=== PATIENT | male | born 1990 | race Caucasian/White ===

== ENCOUNTER → 2016-07-16 | Outpatient (CLI) | payer BC, MEDICARE | LOC: MW.CHFP 08:00 | CPT/HCPCS: G0463 ==

== ENCOUNTER 2017-12-01 18:48 | Observation (INO) | payer BC, MEDICARE ==
[2017-12-01] MEDS ORDERED: Sodium Chloride 0.9% 1,000 ML IV ONE (19:33)
[2017-12-01] MEDS ORDERED: Sodium Chloride 0.9% 10 ML Syringe FLUSH PRN ×2 (19:33)
[2017-12-01] MEDS ORDERED: Sodium Chloride 0.9% 2.5 ML Syringe FLUSH PRN (19:33)
[2017-12-01] MEDS ORDERED: Ondansetron 4 MG/2 ML SDV IVPUSH ONE (19:33)
[2017-12-01] MEDS ORDERED: HYDROmorphone 2 MG/ML SDV IVPUSH ONE (19:33)
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
[2017-12-01] MEDS ORDERED: HYDROmorphone 1 MG/ML Syringe IVPUSH ONE (19:45)
[2017-12-01 20:24] LABS: CHLORIDE,CL 102 mmol/L (98-107); SODIUM,NA 137 mmol/L (136-148)
[2017-12-01] MEDS ORDERED: HYDROmorphone 2 MG/ML SDV IV ONE (22:07)
[2017-12-01] MEDS ORDERED: cefTRIAXone 1 GM in Premix Bag 1 BAG IV ONE (22:14)
[2017-12-01] MEDS ORDERED: Iopamidol 755 MG/ML 500 ML Multipack Bottle IVPUSH STA (22:43)
[2017-12-01] MEDS ORDERED: Lactated Ringers 1,000 ML IV SCH ×2 (22:45→23:15)
[2017-12-01] MEDS ORDERED: Bupivacaine 25%/EPINEPHrine/PF 30 ML ONE (22:51)
--- NOTE | 2017-12-01 23:06 | PCM.SN ---
- Free Text/Narrative Note: pt seen, chart reviewed; acute appendicitis; to OR; rb dw pt re bleeding/ infection/damage to nearby organs; pt concurs and proceed; [id number]
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
[2017-12-01] MEDS ORDERED: EPINEPHrine 1 MG/ML 30 ML MDV IVPUSH ONE (23:16)
[2017-12-01] MEDS ORDERED: diphenhydrAMINE 50 MG/ML SDV IVPUSH ONE (23:16)
[2017-12-01] MEDS ORDERED: EPINEPHrine 1 MG/ML SDV ONE (23:19)
[2017-12-01] MEDS ORDERED: Propofol 200 MG/20 ML SDV ONE (23:20)
[2017-12-01] MEDS ORDERED: fentaNYL 250 MCG/5 ML SDV ONE (23:20)
[2017-12-01] MEDS ORDERED: Midazolam 1 MG/ML 2 ML SDV ONE (23:20)
[2017-12-01] MEDS ORDERED: Succinylcholine 200 MG/10 ML MDV ONE (23:22)
[2017-12-01] MEDS ORDERED: Rocuronium 10 MG/ML 10 ML Syringe ONE (23:22)
[2017-12-01] MEDS ORDERED: Dexamethasone 4 MG/ML 5 ML MDV ONE (23:24)
[2017-12-01] MEDS ORDERED: Ondansetron 4 MG/2 ML SDV ONE (23:24)
[2017-12-02] MEDS ORDERED: Hydrocortisone Sodium Succinate 100 MG/2 ML SDV ONE (00:02)
[2017-12-02] MEDS ORDERED: Phenylephrine/Normal Saline 100 MCG/ML 10 ML Syringe ONE (00:04)
[2017-12-02] MEDS ORDERED: Vasopressin 20 Units/1 ML MDV ONE (00:20)
[2017-12-02] MEDS ORDERED: Neostigmine Methylsulfate 1 MG/ML 5 ML Syringe ONE (00:29)
[2017-12-02] MEDS ORDERED: Glycopyrrolate 0.2 MG/ML SDV ONE ×2 (00:29→00:45)
--- NOTE | 2017-12-02 01:11 | CONS ---
DATE OF CONSULTATION: DATE OF : 1990 PRIMARY CARE PHYSICIAN: None PCP Consult was called, and the patient was seen shortly after. CONCERNING QUESTION: Acute appendicitis. HISTORY OF PRESENT ILLNESS: The patient is a 27-year-old gentleman, had traumatic brain injury and seizure disorder in 2009, complained of abdominal pain for about 12 hours. In the emergency room, workup included CAT scan that shows acute appendicitis, Surgery was consulted. The patient denied prior episode. Denied nausea or vomiting. Last meal was 24 hours ago. ALLERGIES: Please refer to nursing for details. MEDICATION: Please refer to nursing for details. FAMILY HISTORY: Noncontributory. REVIEW OF SYSTEMS: Same as history of present illness. PHYSICAL EXAMINATION: GENERAL: A very pleasant, nice gentleman, in no acute distress. ENT: Normocephalic, atraumatic. Sclerae anicteric. HEAD AND NECK: The patient has a well-healed tracheostomy site. LUNGS: Clear to auscultation. HEART: Regular rate and rhythm. ABDOMEN: Soft, nondistended. No pulsating tenderness in the midline abdominal structure. Exquisite tenderness on the right lower quadrant. No Rovsing sign. No rebound tenderness. No surgical scar in the abdomen. DIAGNOSTIC DATA: CAT scan is alluded to. IMPRESSION: Acute appendicitis. Would benefit from appendectomy, laparoscopic versus open. Risks and benefits discussed with the patient including bleeding, infection, and damage to nearby organs. The patient agreed to proceed with surgery. The patient has some hardware in the brain and already gave 1 g of Rocephin and proceed as laparoscopic appendectomy. JENNA / ZOFIA /[id number]
--- NOTE | 2017-12-02 01:26 | PCM.OPNOTE ---
- General Post-Op/Procedure Note Date of Surgery/Procedure: 12/02/17 Operative Procedure(s): lap appendectomy Findings: appendix is dusky, edema, and with exudate, cw appendicitis suppurativa; peritoneal fluid was cloudy; gross perf was not observed; [id number] Pre Op Diagnosis: acute appendicitis Post-Op Diagnosis: Same Anesthesia Technique: General ET Tube Primary Surgeon: Haile Martino Pathology: sent Condition: Fair Free Text/Narrative:: Intake & Output 12/01/17 12/01/17 12/02/17 14:59 22:59 06:59 Output Total 400 Balance -400
[2017-12-02] MEDS ORDERED: Acetaminophen/oxyCODONE 325-5 MG Tab PO PRN (01:29)
[2017-12-02] MEDS ORDERED: Ondansetron 4 MG/2 ML SDV IVPUSH PRN (01:29)
[2017-12-02] MEDS ORDERED: Lactated Ringers 1,000 ML IV SCH (01:30)
--- NOTE | 2017-12-02 01:49 | OR ---
SURGEON: Haile Martino MD DATE OF PROCEDURE: 12/02/2017 PREOPERATIVE DIAGNOSIS: Acute appendicitis. POSTOPERATIVE DIAGNOSIS: Acute appendicitis. PROCEDURE PERFORMED: Laparoscopic appendectomy. COMPLICATIONS: None. FINDINGS: Appendix is dusky and edematous and suppurative, but there is no gross perforation observed. Peritoneal fluid is kind of yellow though and cloudy. PROCEDURE IN DETAIL: The patient was taken to the operating room and placed in the supine position. Following induction of general endotracheal anesthesia, the patient's abdomen was prepped and draped in the sterile fashion. A time-out has been called. The patient was identified. The procedure was identified. The antibiotics were identified. The procedure then proceeded. The abdomen was prepped and draped in a standard fashion. After assessment of appropriate landmarks, a 12 millimeter trocar was inserted supraumbilically using Optiview and pneumoperitoneum was then achieved. This was followed with placement of 5 millimeter port in the right upper quadrant and another 5 millimeter port infraumbilically. The camera was inserted supraumbilical site and two laparoscopic Cobb retractors were then inserted through the other two sites. Following the cecum, the appendix was located. The appendix was then lifted up, and using a GI stapler the appendix was amputated at the base. And using the GI stapler, the mesoappendix was then amputated. The appendix was retrieved by an endoscopic bag and sent for pathologist. This was then followed by re-insertion of the camera to examine the staple line, and hemostasis. The trocars were then removed. The umbilical site was closed with 2-0 Vicryl deep stitch and 4 -0 Vicryl and dermabond; the other 2 5 mm port sites were closed with 4-0 Vicryl and dermabond. The patient was then awakened, extubated, and transferred to the recovery room in hemodynamically stable condition. Prior to closing, sponge count and instrument count was correct. Dr. Martino was present throughout the whole procedure. As always, thank you for the kind referral. INTRAOPERATIVE FINDINGS: As dictated above. JENNA / ZOFIA /[id number]
--- NOTE | 2017-12-02 01:54 | PCM.POSTAN ---
POST ANESTHESIA ASSESSMENT - MENTAL STATUS Mental Status: Alert, Oriented - RESPIRATORY Respiratory Status: Supplemental Oxygen - CARDIOVASCULAR CV Status: Pulse Rate WNL - GASTROINTESTINAL GI Status: No Symptoms - POST OP HYDRATION Hydration Status: Adequate & Stable (To ICU for observation due to O2 sats decreasing to 88%. Dr. Diaz here and talked to meter supervisor.)
--- NOTE | 2017-12-02 01:58 | PCM.SN ---
- Free Text/Narrative Note: Patient now states that he has been diagnosed with sleep apnea but does not wear CPAP. Explained that his oxygen saturations drop to 88% on 3L per [place] when asleep so he will have a mask on and be observed overnight in ICU so he can be watched more closely. Prior to surgery, when patient asked if he had any breathing issues he denied them.
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
[2017-12-02] MEDS ORDERED: Albuterol/Ipratropium 3.0-0.5 MG/3 ML Neb Soln NEB ONE (02:29)
--- NOTE | 2017-12-02 07:42 | PCM48HPAN ---
Post Anesthesia Note - EVALUATION WITHIN 48HRS OF ANESTHETIC Vital Signs in Normal Range: Yes Patient Participated in Evaluation: No (Patient and Dad asleep in room so not disturbed) Respiratory Function Stable: Yes (O2 at .5L/NC per RN) Airway Patent: Yes Cardiovascular Function Stable: Yes Hydration Status Stable: Yes Pain Control Satisfactory: Yes Nausea and Vomiting Control Satisfactory: Yes Mental Status Recovered: Yes Resp Rate: 20
[2017-12-02] MEDS ORDERED: levETIRAcetam 500 MG Tab PO SCH (09:00)
[2017-12-02] MEDS ORDERED: Amoxicillin/Clavulanate K 875-125 MG Tab PO SCH (09:00)
[2017-12-02] MEDS ORDERED: Escitalopram 10 MG Tab PO SCH (09:00)
--- NOTE | 2017-12-02 09:43 | PCM.SURGPN ---
- General Info Date of Service: 12/02/17 Functional Status: Reports: Pain Controlled (overnight uneventful, no desat or co) - Review of Systems General: Reports: No Symptoms Gastrointestinal: Reports: No Symptoms - Patient Data Vitals - Most Recent: Last Vital Signs Temp 98.7 F 12/02/17 08:00 Pulse 104 H 12/02/17 02:00 Resp 17 12/02/17 08:00 BP 92/55 L 12/02/17 08:00 Pulse Ox 94 L 12/02/17 08:00 Weight - Most Recent: 263 lb 10.766 oz I&O - Last 24 Hours: Intake & Output 12/01/17 12/02/17 12/02/17 22:59 06:59 14:59 Intake Total 2161 Output Total 400 Balance 1761 Lab Results Last 24 Hrs: Laboratory Results - last 24 hr 12/01/17 12/01/17 12/01/17 Range/Units 19:45 19:58 19:58 WBC 16.04 H (4.0-11.0) K/uL RBC 5.23 (4.50-5.90) M/uL Hgb 16.6 (13.0-17.0) g/dL Hct 46.0 (38.0-50.0) % MCV 88.0 (80.0-98.0) fL MCH 31.7 (27.0-32.0) pg MCHC 36.1 (31.0-37.0) g/dL RDW Std Deviation 41.3 (28.0-62.0) fl RDW Coeff of Dar 13 (11.0-15.0) % Plt Count 228 (150-400) K/uL MPV 9.30 (7.40-12.00) fL Neut % (Auto) 93.7 H (48.0-80.0) % Lymph % (Auto) 3.6 L (16.0-40.0) % [place] % (Auto) 2.6 (0.0-15.0) % Eos % (Auto) 0.0 (0.0-7.0) % Baso % (Auto) 0.1 (0.0-1.5) % Neut # (Auto) 15.0 H (1.4-5.7) K/uL Lymph # (Auto) 0.6 (0.6-2.4) K/uL [place] # (Auto) 0.4 (0.0-0.8) K/uL Eos # (Auto) 0.0 (0.0-0.7) K/uL Baso # (Auto) 0.0 (0.0-0.1) K/uL Nucleated RBC % 0.0 /100WBC Nucleated RBCs # 0 K/uL Sodium 137 (136-148) mmol/L Potassium 3.5 (3.5-5.1) mmol/L Chloride 102 (98-107) mmol/L Carbon Dioxide 24.1 (21.0-32.0) mmol/L BUN 17 (7.0-18.0) mg/dL Creatinine 1.2 (0.8-1.3) mg/dL Est Cr Clr Drug Dosing 119.54 mL/min Estimated GFR (MDRD) > 60.0 ml/min Glucose 129 H (74-106) mg/dL Calcium 9.2 (8.5-10.1) mg/dL Total Bilirubin 1.7 H (0.2-1.0) mg/dL AST 19 (15-37) IU/L ALT 31 (14-63) IU/L Alkaline Phosphatase 93 (46-116) U/L Total Protein 7.8 (6.4-8.2) g/dL Albumin 4.5 (3.4-5.0) g/dL Globulin 3.3 (2.0-3.5) g/dL Albumin/Globulin Ratio 1.4 (1.3-2.8) Lipase 79 (73-393) U/L Urine Color DARK YELLOW Urine Appearance CLEAR Urine pH 5.5 (5.0-8.0) Ur Specific [place] >= 1.030 (1.001-1.035) Urine Protein TRACE (NEGATIVE) mg/dL Urine Glucose (UA) NEGATIVE (NEGATIVE) mg/dL Urine Ketones TRACE H (NEGATIVE) mg/dL Urine Occult Blood MODERATE (NEGATIVE) Urine Nitrite NEGATIVE (NEGATIVE) Urine Bilirubin NEGATIVE (NEGATIVE) Urine Urobilinogen 0.2 (<2.0) EU/dL Ur Leukocyte Esterase NEGATIVE (NEGATIVE) Urine RBC 1-2 (0-2/HPF) Urine WBC 0-1 (0-5/HPF) Ur Epithelial Cells NOT SEEN (NONE-FEW) Urine Bacteria FEW (NEGATIVE) Urine Mucus FEW (NONE-MOD) Med Orders - Current: Current Medications Discontinued Medications Albuterol/Ipratropium (Duoneb 3.0-0.5 Mg/3 Ml) 3 ml NEB ONETIME ONE Stop: 12/02/17 02:30 Last Admin: 12/02/17 02:41 Dose: 3 ml Amoxicillin/Clavulanate Potassium (Augmentin 875 Mg/125 Mg) 1 tab PO Q12HR [facility] Last Admin: 12/02/17 08:16 Dose: 1 tab Dexamethasone (Dexamethasone) Confirm Administered Dose 20 mg .ROUTE .STK-MED ONE Stop: 12/01/17 23:25 Diphenhydramine HCl (Benadryl) 50 mg IVPUSH ONETIME ONE Stop: 12/01/17 23:17 Last Admin: 12/01/17 23:24 Dose: 50 mg Epinephrine HCl (Adrenalin) 1 mg IVPUSH NOW ONE Stop: 12/01/17 23:17 Last Admin: 12/01/17 23:52 Dose: Not Given Epinephrine HCl (Adrenalin) Confirm Administered Dose 1 mg .ROUTE .STK-MED ONE Stop: 12/01/17 23:20 Last Admin: 12/01/17 23:24 Dose: 1 mg Escitalopram Oxalate (Lexapro) 10 mg PO DAILY [facility] Last Admin: 12/02/17 08:16 Dose: 10 mg Fentanyl (Sublimaze) Confirm Administered Dose 250 mcg .ROUTE .STK-MED ONE Stop: 12/01/17 23:21 Glycopyrrolate (Robinul) Confirm Administered Dose 0.4 mg .ROUTE .STK-MED ONE Stop: 12/02/17 00:30 Glycopyrrolate (Robinul) Confirm Administered Dose 0.2 mg .ROUTE .STK-MED ONE Stop: 12/02/17 00:46 Hydrocortisone Sodium Succinate (Solu-Cortef) Confirm Administered Dose 100 mg .ROUTE .STK-MED ONE Stop: 12/02/17 00:03 Hydromorphone HCl (Dilaudid) 1 mg IVPUSH ONETIME ONE Stop: 12/01/17 19:34 Last Admin: 12/01/17 20:03 Dose: Not Given Hydromorphone HCl (Dilaudid) 1 mg IVPUSH ONETIME ONE Stop: 12/01/17 19:46 Last Admin: 12/01/17 19:59 Dose: 1 mg Hydromorphone HCl (Dilaudid) 1 mg IV ONETIME ONE Stop: 12/01/17 22:08 Last Admin: 12/01/17 22:58 Dose: Not Given Sodium Chloride (Normal Saline) 1,000 mls @ 999 mls/hr IV .Bolus ONE Stop: 12/01/17 20:33 Last Admin: 12/01/17 19:58 Dose: 999 mls/hr Ceftriaxone Sodium/Dextrose 1 (gm/ Premix) 50 mls @ 100 mls/hr IV ONETIME ONE Stop: 12/01/17 22:43 Last Admin: 12/01/17 22:41 Dose: 100 mls/hr Lactated Ringer's (Ringers, Lactated) 1,000 mls @ 150 mls/hr IV ASDIRECTED [facility] Last Admin: 12/01/17 22:40 Dose: 150 mls/hr Bupivacaine HCl/Epinephrine Bitart (Sensorc Mpf 0.25%-Epi 1:[id number]) Confirm Administered Dose 30 mls @ as directed .ROUTE .STK-MED ONE Stop: 12/01/17 22:52 Lactated Ringer's (Ringers, Lactated) 1,000 mls @ 150 mls/hr IV ASDIRECTED ELVIA Lactated Ringer's (Ringers, Lactated) 1,000 mls @ 125 mls/hr IV ASDIRECTED [facility] Last Admin: 12/02/17 02:55 Dose: 125 mls/hr Iopamidol (Isovue Multipack-370 (76%)) 100 ml IVPUSH ONETIME STA Stop: 12/01/17 22:44 Last Admin: 12/01/17 22:43 Dose: 100 ml Levetiracetam (Keppra) 1,000 mg PO BID [facility] Last Admin: 12/02/17 08:16 Dose: 1,000 mg Lidocaine HCl (Xylocaine-Mpf 1%) 5 ml INJECT ONETIME ONE Stop: 12/01/17 21:19 Last Admin: 12/01/17 22:39 Dose: Not Given Midazolam HCl (Versed 1 Mg/Ml) Confirm Administered Dose 2 mg .ROUTE .STK-MED ONE Stop: 12/01/17 23:21 Neostigmine Methylsulfate (Neostigmine) Confirm Administered Dose 5 mg .ROUTE .STK-MED ONE Stop: 12/02/17 00:30 Ondansetron HCl (Zofran) 8 mg IVPUSH ONETIME ONE Stop: 12/01/17 19:34 Last Admin: 12/01/17 19:58 Dose: 8 mg Ondansetron HCl (Zofran) Confirm Administered Dose 4 mg .ROUTE .STK-MED ONE Stop: 12/01/17 23:25 Ondansetron HCl (Zofran) 4 mg IVPUSH Q8H PRN PRN Reason: Nausea/Vomiting Oxycodone/Acetaminophen (Percocet 325-5 Mg) 1 tab PO Q6H PRN PRN Reason: Pain Last Admin: 12/02/17 08:16 Dose: 1 tab Phenylephrine HCl (Phenylephrine In Ns 100 Mcg/Ml) Confirm Administered Dose 1 mg .ROUTE .STK-MED ONE Stop: 12/02/17 00:05 Propofol (Diprivan 20 Ml) Confirm Administered Dose 400 mg .ROUTE .STK-MED ONE Stop: 12/01/17 23:21 Rocuronium [place] (Zemuron) Confirm Administered Dose 100 mg .ROUTE .STK-MED ONE Stop: 12/01/17 23:23 Sodium Chloride (Saline Flush) 10 ml FLUSH ASDIRECTED PRN PRN Reason: Keep Vein Open Sodium Chloride (Saline Flush) 10 ml FLUSH ASDIRECTED PRN PRN Reason: Keep Vein Open Sodium Chloride (Saline Flush) 2.5 ml FLUSH ASDIRECTED PRN PRN Reason: Keep Vein Open Succinylcholine Chloride (Quelicin) Confirm Administered Dose 200 mg .ROUTE .STK -MED ONE Stop: 12/01/17 23:23 Vasopressin (Vasopressin) Confirm Administered Dose 20 units .ROUTE .STK-MED ONE Stop: 12/02/17 00:21 - Exam Wound/Incisions: No Drainage General: Alert, Oriented GI/Abdominal Exam: Normal Bowel Sounds, Soft, Non-Tender (wound cdi, drsg dried ; ) - Problem List Review Problem List Initiated/Reviewed/Updated: Yes - My Orders Last 24 Hours: Active Orders 24 hr Category Date Time Status Admission Status [Patient Status] [ADT] Routine ADT 12/01/17 23:21 Active Admission Status [Patient Status] [ADT] Routine ADT 12/02/17 01:56 Active Communication Order [RC] ROUTINE Care 12/02/17 01:26 Active Oxygen Therapy [RC] ASDIRECTED Care 12/02/17 01:52 Active Ready for Discharge [RC] PER UNIT ROUTINE Care 12/02/17 01:31 Active Abdomen Pelvis w Cont [CT] Stat Exams 12/01/17 19:33 Taken CULTURE BLOOD [BC] Stat Lab 12/01/17 20:32 Received CULTURE BLOOD [BC] Stat Lab 12/01/17 20:46 Received CULTURE URINE [RM] Stat Lab 12/01/17 19:45 Ordered UA W/MICROSCOPIC [URIN] Stat Lab 12/01/17 19:45 Ordered Blood Culture x2 Reflex Set [OM.PC] Stat Oth 12/01/17 20:19 Ordered Saline Lock Insert [OM.PC] Stat Oth 12/01/17 19:33 Ordered - Assessment Assessment (Free Text/Narrative):: doing well postop, home on full liquid and home meds fu 1 - 2 wks - Plan Plan (Free Text/Narrative):: doing well postop, home on full liquid and home meds fu 1 - 2 wks
--- NOTE | 2017-12-02 10:47 | CT ---
EXAM DATE: 12/02/17 PATIENT'S AGE: 27 Patient: SRAVAN ROBIN Facility: [place], [place] Site . Site : 1990 Study: CT Abdomen/Pelvis [id number]/4/2018 9:37:22 PM Ordering Physician: Corona Miller Final Report: INDICATION: Abdominal pain. Clinical concern for bowel obstruction. TECHNIQUE: CT abdomen and pelvis acquired with 100 mL of Isovue 370 contrast. COMPARISON: None FINDINGS: Lower chest: Unremarkable. Liver: Mild diffuse low-attenuation steatosis. Spleen: Roughly 3.8 cm low attenuation lesion anterior margin. Lacy peripheral enhancement. Subtle internal complexity. Pancreas: Unremarkable. Gallbladder and bile ducts: Unremarkable. Kidneys: Unremarkable. Adrenal glands: Unremarkable. GI tract: Unremarkable. Appendix is inferior medial from cecum and mildly dilated to 11 mm with an appendicolith proximal and diffuse mild mucosal enhancement and subtle periappendiceal inflammatory stranding. Vascular structures: Negative. No sign of aneurysm. Lymph nodes: Unremarkable. Miscellaneous: Unremarkable. Trace dependent free fluid in the pelvis. Pelvic Organs: Unremarkable. Bones: Unremarkable for age. IMPRESSION: Mild acute appendicitis. Nearly 4 cm presumed hemangioma in the spleen. Mild hepatic steatosis. Please note that all CT scans at this facility use dose modulation, iterative reconstruction, and/or weight-based dosing when appropriate to reduce radiation dose to as low as reasonably achievable. Dictated by Jorge Lorenzo MD @ Dec 01 2017 9:49PM (Electronic Signature) Report Signed by Proxy. [facility]
== END 2017-12-02 09:29 | disposition home or self-care (01) ==
LOC: MW.ED 18:48 → MW.SDS 22:22 → MW.MS 23:21 → MW.ICU 12-02 01:56 → MW.SDS 12-02 01:56
PROVIDERS: ADMIT Surgery; ATTEND Surgery
DX: K35.80 Unspecified acute appendicitis (principal); F32.9 Major depressive disorder, single episode, unspecified; Z79.899 Other long term (current) drug therapy
CPT/HCPCS: 36415; 44970; 74177; 80053; 81001; 83690; 85025; 87040; 87086; 96361; 96365; 96375; 99285; A9270; J0171; J0330; J0696; J1100; J1170; J1200; J1720; J2250; J2405; J3010; J7040; J7120; Q9967; J2704

== ENCOUNTER 2019-04-28 07:19 | Day surgery (SDC) | payer BC ==
[~2019-04-28 07:19] MED LIST: Glycopyrrolate 0.2 MG/ML SDV ONE; Lactated Ringers 1,000 ML IV SCH; Midazolam 1 MG/ML 2 ML SDV ONE; Neostigmine Methylsulfate 1 MG/ML 5 ML Syringe ONE; Phenylephrine/Normal Saline 100 MCG/ML 10 ML Syringe ONE; Propofol 200 MG/20 ML SDV ONE; Rocuronium 100 MG/10 ML Syringe ONE; Sodium Chloride 0.9% 20 ML ONE; ceFAZolin 2 GM in Premix Bag 1 BAG IV ONE; fentaNYL 100 MCG/2 ML SDV ONE
[2019-04-28] MEDS ORDERED: Bupivacaine 0.5% 30 ML SDV ONE (07:40)
[2019-04-28] MEDS ORDERED: ceFAZolin 1 GM Vial ONE (07:40)
[2019-04-28] MEDS ORDERED: ceFAZolin/Dextrose,Iso-Osmotic 2 GM/50 ML Duplex Bag IV ONE (07:45)
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
[2019-04-28] MEDS ORDERED: Sodium Chloride 0.9% 20 ML ONE (09:07)
[2019-04-28] MEDS ORDERED: Acetaminophen/HYDROcodone 325-5 MG Tab PO PRN (09:48)
[2019-04-28] MEDS ORDERED: Morphine 2 MG/ML Syringe IVPUSH PRN (09:49)
[2019-04-28] MEDS ORDERED: Racepinephrine 2.25% 0.5 ML Neb Soln ONE ×2 (09:51→09:52)
--- NOTE | 2019-04-28 09:57 | PCM.OPNOTE ---
- General Post-Op/Procedure Note Date of Surgery/Procedure: 04/28/19 Operative Procedure(s): Repair incarcerated incisional hernia Pre Op Diagnosis: Incarcerated incisional hernia Post-Op Diagnosis: Same Anesthesia Technique: General ET Tube (ASA II) Primary Surgeon: Gilbert Jimenez Rubber Tester: Gopal Frazier Fluid Replacement, Intraop: 900 EBL in mLs: 10 Condition: Good Free Text/Narrative:: DICTATION [id number] CPT CODE 82788
[2019-04-28] MEDS ORDERED: Lactated Ringers 1,000 ML IV SCH (10:00)
[2019-04-28] MEDS ORDERED: Racepinephrine 2.25% 0.5 ML Neb Soln NEB ONE (10:15)
[2019-04-28] MEDS ORDERED: Sodium Chloride 0.9% Inhalation Soln 3 ML Neb INH PRN (10:15)
[2019-04-28] MEDS ORDERED: HYDROmorphone 1 MG/ML Syringe IVPUSH ONE (10:18)
[2019-04-28] MEDS: fentaNYL 100 MCG/2 ML SDV IVPUSH PRN ×2 (10:19→10:24)
--- NOTE | 2019-04-28 10:35 | PCM.POSTAN ---
POST ANESTHESIA ASSESSMENT - MENTAL STATUS Mental Status: Alert, Oriented - VITAL SIGNS Vital Signs: Last Vital Signs Temp 37.2 C 04/28/19 09:51 Pulse 63 04/28/19 10:31 Resp 12 04/28/19 10:31 BP 117/61 04/28/19 10:31 Pulse Ox 94 L 04/28/19 10:31 - RESPIRATORY Respiratory Status: Respiratory Rate WNL, Airway Patent, O2 Saturation Stable - CARDIOVASCULAR CV Status: Pulse Rate WNL, Blood Pressure Stable - GASTROINTESTINAL GI Status: No Symptoms - PAIN Pain Score: 4 - POST OP HYDRATION Hydration Status: Adequate & Stable - OBSERVATIONS Free Text/Narrative:: No anesthesia problems
--- NOTE | 2019-04-28 11:19 | OR ---
SURGEON: Gilbert Jimenez M.D. DATE OF PROCEDURE: 04/28/2019 OPERATION PERFORMED: Repair of incarcerated incisional hernia. SUPPLY CHAIN TECHNICIAN: Dr. Frazier, PGY-2. ANESTHESIA: General endotracheal ASA CLASSIFICATION: II. PREOPERATIVE DIAGNOSIS: Incarcerated incisional hernia. POSTOPERATIVE DIAGNOSIS: Incarcerated incisional hernia. ESTIMATED BLOOD LOSS: 10 mL. INTRAOPERATIVE FLUID REPLACEMENT: 900 mL of crystalloid. DESCRIPTION OF PROCEDURE: The patient was taken to the operating room and placed on the operating table in the supine position. Time-out was called for appropriate identification of the patient and procedure. Surgical site had been marked prior to the patient entering the operating room. Thigh-high TEDs and sequential compression boots were placed. Following satisfactory attainment of general endotracheal anesthesia, the abdomen was prepped with DuraPrep solution and sterile drapes were applied. The patient did have a supraumbilical curvilinear incision. Utilizing the old incision, the skin was infiltrated with 10 mL of 0.5% Marcaine solution. The skin incision was made and deepened through the subcutaneous tissue immediately entering the hernia sac. The hernia sac was mobilized and dissected away until we could identify clear fascial margins. Preperitoneal fat was dissected away using a combination of sharp dissection and electrocautery. Hemostasis was obtained with the use of electrocautery. Once the fascial edges had been cleared in all directions, the defect was approximately 1 to 1.5 cm. It was not felt that the mesh could be satisfactorily placed. Therefore, the incision was closed with closely spaced 0 Ethibond sutures placing them 2 to 3 mm apart. Once all sutures were tied, the patient was given a Valsalva maneuver to 40 cm of water. The repair was solid. The Ethibond sutures were cut to appropriate length. The wound was irrigated with sterile saline solution and all fluid was aspirated. The subcutaneous tissue was closed with 3-0 Vicryl. Skin edges were reapproximated with subcuticular 4-0 Monocryl reinforced with half-inch Steri-Strips. The incision was dressed with a sterile Tegaderm pad. Sponge, needle, and instrument counts were all correct. Following emergence from anesthesia and extubation, the patient was taken to the recovery room in stable condition. DOMINIQUE / ZOFIA /[id number] MTDD
[2019-04-28] MEDS ORDERED: Morphine 4 MG/ML Syringe IVPUSH PRN (11:21)
--- NOTE | 2019-04-28 12:57 | PCM48HPAN ---
Post Anesthesia Note - EVALUATION WITHIN 48HRS OF ANESTHETIC Vital Signs in Normal Range: Yes Patient Participated in Evaluation: Yes Respiratory Function Stable: Yes Airway Patent: Yes Cardiovascular Function Stable: Yes Hydration Status Stable: Yes Pain Control Satisfactory: Yes Nausea and Vomiting Control Satisfactory: Yes Mental Status Recovered: Yes Vital Signs: Last Vital Signs Temp 36.8 C 04/28/19 10:36 Pulse 60 04/28/19 12:06 Resp 16 04/28/19 12:06 BP 119/71 04/28/19 12:06 Pulse Ox 96 04/28/19 12:06 - COMMENTS/OBSERVATIONS Free Text/Narrative:: No anesthesia problems
== END 2019-04-28 14:14 | disposition home or self-care (01) ==
LOC: MW.SDS 07:19
PROVIDERS: ATTEND Surgery
DX: K43.0 Incisional hernia with obstruction, without gangrene (principal); H54.62 Unqualified visual loss, left eye, normal vision right eye; F32.9 Major depressive disorder, single episode, unspecified; E66.9 Obesity, unspecified; Z68.30 Body mass index [BMI] 30.0-30.9, adult; Z79.899 Other long term (current) drug therapy
CPT/HCPCS: 49561; A9270; J0330; J0690; J2250; J2270; J2370; J2704; J3010; J3490; J7120